=== PATIENT | male | born 1955 | race Caucasian/White ===

== ENCOUNTER → 2017-03-24 | Outpatient (CLI) | payer OTHER ==
[~2017-03-24] MED LIST: ACE INHIBITOR OR; ACTOS 45 MG45 M1 PO; ADULT LOW DOSE81 MG PO; BENICAR20 MG PO; CRESTOR20 MG PO; FISH OIL 1,0001 EAC5 PO; GLUCOPHAGE1000 MG PO; JANUMET 50-1,01 EACH PO; LANTUSSOLASTAR SUBQ; VICTOZA0.6 MG/0.1 SUBQ
--- NOTE | ~2017-03-24 | EXE ---
Formerly [facility] [email or web address] [place] [address] STRESS ECHOCARDIOGRAM Name: DAISY LARSON Room #: [facility]#: [id number] Admission: 03/24/17 Attend Phys: Juan Fine, Discharge: Date of : 51 Date of Service: 03/24/17 1351 Report #: [id number] THIS REPORT FOR: //name// APPROVED REPORT Exam: Stress Echocardiogram Indication: Chest pain, short of breath, HTN, increased calcium score Patient Location: Out-Patient Stress Nurse: Clara Latham RN Status: routine Ht: 5 ft 10 in HR: 68 bpm BP: 133/84 mmHg Rhythm: NSR Medical History Medications: Listed on worksheet Allergies: No known drug allergies Cardiac Risk Factors: HTN, HTN, Diabetes, FHX of CAD, obesity Procedure The patient underwent an Exercise Stress Test using the Hernandez Protocol. Blood pressure, heart rate, and EKG were monitored. An Echocardiogram was performed by er medical technician in four stages in quad fashion. At peak stress, four selected images were obtained and placed side by side with resting images for comparison. Echo Enhancing Agent Indication: Endocardial border delineation Agent(s) / Amount(s) Used: Optison 3 cc Stress Test Details Stress Test: Exercise stress testing was performed using a Hernandez protocol. HR Resting HR: 68 bpm Max Heart Rate (APMHR): 156 bpm Max HR Achieved: 162 bpm Target HR (85% APMHR): 132 bpm % of APMHR: 103 Recovery HR: 101 bpm HR response to stress: Normal HR response to stress BP Resting BP: 133/84 mmHg Formerly [facility] [address] [place] [address] STRESS ECHOCARDIOGRAM Name: DAISY LARSON Room #: REG COUNT INCLUDES THE [facility]#: [id number] Admission: 03/24/17 Attend Phys: Juan Fine, Discharge: Date of : 51 Date of Service: 03/24/17 1351 Report #: [id number] Max BP: 170/64 mmHg Recovery BP: 154/86 mmHg ECG Clinical Reason for Termination: Completed protocol/moderate fatigue Stress Symptoms: Dyspnea Exercise duration: 8 min 56 sec Highest Stage Achieved: Stage 3: 3.4 mph at 14% grade. Exercise capacity: 10.10 METs Pre-Stress Echo The resting Echocardiogram showed normal left ventricular contractility with an estimated Ejection Fraction of about 55-60%. Trivial MR, TR, AI. Post-Stress Echo The stress Echocardiogram showed normal left ventricular contractility with an estimated Ejection Fraction of about >70%. Conclusion Clinical Response: Non-ischemic Exercise Capacity: Average Stress ECG Response: Non-ischemic Stress Echo Images: Non-ischemic Other Information Study Quality: Adequate <ELECTRONICALLY SIGNED> By: Juan Fine MD, [facility] 03/24/17 1351 50 50 Juan Fine MD, FACC /INF
== END ==
LOC: CV 03-19 07:15
DX: K82.4 Cholesterolosis of gallbladder (principal); I10 Essential (primary) hypertension; E11.8 Type 2 diabetes mellitus with unspecified complications; I25.10 Atherosclerotic heart disease of native coronary artery without angina pectoris; E78.00 Pure hypercholesterolemia, unspecified; I77.3 Arterial fibromuscular dysplasia; E83.52 Hypercalcemia

== ENCOUNTER → 2019-05-08 | Outpatient (CLI) | payer OTHER | END | disposition home or self-care (01) | LOC: SJCVCIMAG 10:11 | DX: I11.9 Hypertensive heart disease without heart failure (principal); E11.9 Type 2 diabetes mellitus without complications; E78.5 Hyperlipidemia, unspecified; E78.00 Pure hypercholesterolemia, unspecified; Z79.4 Long term (current) use of insulin ==

== ENCOUNTER → 2019-05-08 | Outpatient (CLI) | payer OTHER | LOC: CAT 15:40 | DX: Z13.6 Encounter for screening for cardiovascular disorders (principal); E78.00 Pure hypercholesterolemia, unspecified; I25.10 Atherosclerotic heart disease of native coronary artery without angina pectoris ==

== ENCOUNTER → 2020-02-02 | Outpatient (CLI) | payer OTHER | LOC: SJCVCIMAG 13:10 → SJCVC 13:10 | PROVIDERS: ATTEND Internal Medicine Cardiovascular Disease | DX: I65.23 Occlusion and stenosis of bilateral carotid arteries (principal); R94.31 Abnormal electrocardiogram [ECG] [EKG]; I10 Essential (primary) hypertension; E78.00 Pure hypercholesterolemia, unspecified; I25.10 Atherosclerotic heart disease of native coronary artery without angina pectoris; E11.9 Type 2 diabetes mellitus without complications; Z79.4 Long term (current) use of insulin; Z79.899 Other long term (current) drug therapy; Z87.891 Personal history of nicotine dependence ==

== ENCOUNTER → 2020-02-22 | Outpatient (CLI) | payer OTHER | LOC: SJCVCIMAG 08:41 | PROVIDERS: ATTEND Internal Medicine Cardiovascular Disease | DX: I25.10 Atherosclerotic heart disease of native coronary artery without angina pectoris (principal); R53.83 Other fatigue; R06.00 Dyspnea, unspecified ==